=== PATIENT | male | born 2005 | race Hispanic/Latino ===

== ENCOUNTER 2025-01-22 09:30 | Emergency (ER) | payer SELFPAY ==
[~2025-01-22] VITALS: Ht 180.3 cm; Wt 150.1 kg
[2025-01-22 09:35] VITALS: BP 161/89; PULSE 94; RESP 18; TEMP 98.2; O2SAT 98
[2025-01-22] MEDS ORDERED: IBUP-1131 PO (09:51)
[2025-01-22] MEDS: MOTRIN PO STA (09:51)
== END 2025-01-22 09:54 | disposition home or self-care (01) ==
LOC: ER 09:30
DX: S80.12XA Contusion of left lower leg, initial encounter (principal); W22.09XA Striking against other stationary object, initial encounter; Y93.89 Activity, other specified; Y92.89 Other specified places as the place of occurrence of the external cause; Y99.8 Other external cause status
CPT/HCPCS: 99283